=== PATIENT | male | born 1955 | race Caucasian/White ===

== ENCOUNTER 2018-04-14 07:07 | Observation (INO) | payer BC ==
[2018-04-13 12:57] LABS: BASOPHILS % 0.1 % (0.0-1.0); EOSINOPHILS # (AUTO) 0.2 (0.0-0.4); EOSINOPHILS % 1.8 % (0.0-6.0); HEMATOCRIT 45.4 % (38.2-49.6); HEMOGLOBIN 15.5 g/dL (14.0-18.0); LYMPHOCYTES # (AUTO) 1.3 (1.0-3.2); LYMPHOCYTES % 14.4 % (18.0-39.1); MEAN CORPUSCULAR HEMOGLOBIN 32.8 pg (28-32); MEAN CORPUSCULAR HGB CONC 34.1 g/dL (31-35); MEAN CORPUSCULAR VOLUME 96.2 fL (81-99); MONOCYTES # (AUTO) 0.7 (0.2-0.8); MONOCYTES % 7.8 % (4.4-11.3); NEUTROPHILS # (AUTO) 6.6 (2.1-6.9); NEUTROPHILS % 75.6 % (38.7-80.0); PLATELET COUNT 152 x10e3/uL (140-360); RED BLOOD COUNT 4.72 x10e6/uL (4.3-5.7); RED CELL DISTRIBUTION WIDTH 12.5 % (11.7-14.4)
[2018-04-13 13:07] LABS: INR 1.14; PROTHROMBIN TIME 13.7 seconds (11.9-14.5)
[2018-04-13 13:08] LABS: PARTIAL THROMBOPLASTIN TIME 25.2 seconds (23.8-35.5)
[2018-04-13 13:12] LABS: ANION GAP 13.8 mmol/L (8-16); BLOOD UREA NITROGEN 25 mg/dL (7-26); BUN/CREATININE RATIO 24 (6-25); CALCIUM 9.5 mg/dL (8.4-10.2); CARBON DIOXIDE 25 mmol/L (22-29); CHLORIDE 103 mmol/L (98-107); CREATININE, SERUM 1.04 mg/dL (0.72-1.25); EST GLOMERULAR FILTRATION RATE > 60 ML/MIN (60-); GLUCOSE 90 mg/dL (74-118); POTASSIUM 3.8 mmol/L (3.5-5.1); SODIUM 138 mmol/L (136-145)
--- NOTE | 2018-04-13 13:27 | Diagnostic Imaging Report ---
PROCEDURE: X-RAY CHEST, TWO VIEWS COMPARISON: None. INDICATIONS: PREOPERATIVE CHEST XRAY FOR CERVICAL SPINE SURGERY FINDINGS: LUNGS: No consolidations or edema. PLEURA: No effusions or pneumothorax. HEART \T\ MEDIASTINUM: The heart is within normal size-limits. BONES \T\ SOFT TISSUES: No acute findings. There are degenerative changes of the right AC joint and of a shoulder on the lateral image. CONCLUSION: No acute thoracic abnormality. Dictated by: Tayler Mcintosh M.D. on 04/13/2018 at 13:34 Electronically approved by: Tayler Mcintosh M.D. on 04/13/2018 at 13:34
[~2018-04-14] VITALS: Ht 175.3 cm; Wt 87.5 kg
[~2018-04-14 07:07] MED LIST: AMLODIPINE BESYL5 MG PO; BACITRACIN 50,000 UNIT VIAL ONE; BENICAR20 MG PO; BUPIVACAINE 0.5%/EPI 30 ML SDV INJ ONE; BUPIVACAINE HCL 0.5% INJ 30 ML VIAL INJ ONE; CIALIS5 MG PO; CRESTOR20 MG PO; FLECTOR1 EACH TOP; FOLIC ACID PO; FOLIC ACID1 MG PO; GELATIN SPONGE SZ 100 ONE; METHOTREXATE PO; MYRBETRIQ25 MG PO; NALFON400 MG PO; NEXIUM40 MG PO; PENNSAID TOP; PLAVIX75 MG PO; PREVACID30 M1 PO; TESTOSTERON INJ; THROMBIN FOR SOLN 5,000 UNIT VIAL ONE; ZIPSOR25 MG PO
[2018-04-14] MEDS ORDERED: ACETAMINOPHEN 1000 MG/100 ML 100 ML IV ONE (07:12)
[2018-04-14] MEDS ORDERED: LIDOCAINE HCL (LTA) 4 ML SOLN ONE (07:12)
[2018-04-14] MEDS ORDERED: CEFAZOLIN SOD 1 GM VIAL ONE (07:44)
[2018-04-14] MEDS: LACTATED RINGER'S 1,000 ML IV SCH ×2 (09:44→18:04)
[2018-04-14] MEDS ORDERED: MAGNESIUM/ALUMINUM/SIMETHICONE 30 ML UDC PO PRN (09:45)
[2018-04-14] MEDS ORDERED: TADALAFIL 5 MG PO PRN (09:45)
[2018-04-14] MEDS ORDERED: CARISOPRODOL 350 MG TAB PO PRN (09:45)
[2018-04-14] MEDS ORDERED: MORPHINE SULFATE 5 MG/ML VIAL IM PRN (09:45)
[2018-04-14] MEDS ORDERED: ONDANSETRON HCL INJ 2 MG/ML VIAL IV PRN (09:45)
[2018-04-14] MEDS ORDERED: HYDROMORPHONE 2MG/ML 2 MG/ML ML IV PRN (09:45)
[2018-04-14] MEDS ORDERED: PROMETHAZINE HCL (IM) 25 MG/ML VIAL IM PRN (09:45)
[2018-04-14] MEDS ORDERED: ACETAMINOPHEN 325 MG TAB PO PRN (09:45)
[2018-04-14] MEDS ORDERED: FENTANYL CITRATE/PF 100MCG/2 ML INJ ONE ×2 (09:50→17:51)
[2018-04-14] MEDS ORDERED: HYDROMORPHONE 1MG/1ML INJ ONE (10:03)
[2018-04-14] MEDS: PANTOPRAZOLE SOD 40 MG TABEC PO SCH (11:00)
[2018-04-14 11:05] VITALS: BP 167/85
[2018-04-14 11:06] VITALS: BP 167/85
[2018-04-14] MEDS: OXYCODONE/ACETAMINOPHEN 5-325 1 EACH TABLET PO PRN ×3 (11:50→20:00)
[2018-04-14 12:26] VITALS: BP 156/74
[2018-04-14] MEDS ORDERED: CEFAZOLIN SOD 1 GM/D5W 50ML 50 ML IV SCH (14:00)
[2018-04-14] MEDS ORDERED: CEPACOL SORE THROAT LOZENGES PO ONE (15:08)
[2018-04-14] MEDS ORDERED: CEPACOL SORE THROAT LOZENGES PO PRN (15:15)
[2018-04-14] MEDS: CEFAZOLIN SOD 1 GM VIAL IV SCH ×2 (16:00→23:09)
[2018-04-14 17:00] VITALS: BP 139/72
[2018-04-14] MEDS ORDERED: MIDAZOLAM HCL 2 MG/2 ML VIAL ONE (17:51)
[2018-04-14] MEDS ORDERED: GLYCOPYRROLATE INJ 1MG/ 5 ML SYR ONE (18:30)
[2018-04-14] MEDS ORDERED: NEOSTIGMINE 5 MG/5ML SYR ONE (18:30)
[2018-04-14] MEDS ORDERED: ROCURONIUM BROMIDE 10 MG/ML 5ML VIAL ONE (18:30)
[2018-04-14] MEDS ORDERED: LIDOCAINE HCL 2% LOCAL INJ 5 ML SDV VIAL INJ ONE (18:30)
[2018-04-14] MEDS ORDERED: PROPOFOL IV EMULSION 10 MG/ML 20 ML VIAL ONE (18:30)
[2018-04-14] MEDS ORDERED: DEXAMETHASONE SOD PHOS INJ 4 MG/ML VIAL ONE (18:30)
[2018-04-14] MEDS ORDERED: SEVOFLURANE INHAL SOLN 250 ML PEN BTL ONE (18:30)
[2018-04-14] MEDS ORDERED: LIDOCAINE HCL 2% JELLY 5 ML TUBE ONE (18:30)
[2018-04-14] MEDS ORDERED: ONDANSETRON HCL INJ 2 MG/ML VIAL ONE (18:30)
[2018-04-14 20:00] VITALS: BP 138/65
[2018-04-14] MEDS ORDERED: CRESTOR 10MG PO SCH (21:00)
[2018-04-14] MEDS ORDERED: ZOLPIDEM TARTRATE 5 MG TAB PO PRN (21:00)
[2018-04-15] VITALS: BP 141/78
[2018-04-15] MEDS: OXYCODONE/ACETAMINOPHEN 5-325 1 EACH TABLET PO PRN ×2 (02:05→06:05)
[2018-04-15] MEDS: LACTATED RINGER'S 1,000 ML IV SCH (02:24)
[2018-04-15 04:00] VITALS: BP_SYST 104; BP_SYST 144; BP_DIAS 52; BP_DIAS 77
--- NOTE | 2018-04-15 06:06 | Diagnostic Imaging Report ---
C-SPINE 2 VIEWS AP LATERAL Comparison: None Clinical history: Status post surgery Findings: C-collar is in place. Postsurgical change status post C5-7 ACDF without evidence of acute complication. Straightening of the normal cervical lordosis. There is 2 to 3 mm anterolisthesis of C3 over C4. Impression: Postsurgical changes status post C5-7 ACDF Signed by: Dr Neisha Michel MD on 04/15/2018 6:02 AM
[2018-04-15] MEDS: PANTOPRAZOLE SOD 40 MG TABEC PO SCH (07:30)
[2018-04-15] MEDS: CEFAZOLIN SOD 1 GM VIAL IV SCH (08:05)
[2018-04-15 08:27] VITALS: BP 144/71
[2018-04-15] MEDS ORDERED: AMLODIPINE BESYLATE 5 MG TAB PO SCH (09:00)
[2018-04-15] MEDS ORDERED: NON-FORMULARY MEDICATION (Lansoprazole (Prevacid) 30 MG) PO SCH (09:00)
[2018-04-15] MEDS ORDERED: NON-FORMULARY MEDICATION (Rosuvastatin Calcium (Crestor) 20 MG) PO SCH (09:00)
[2018-04-15] MEDS ORDERED: FOLIC ACID PO SCH (09:00)
[2018-04-15] MEDS ORDERED: FOLIC ACID 1 MG TAB PO SCH ×2 (09:00)
[2018-04-15] MEDS ORDERED: OLMESARTAN 20 MG TAB PO SCH (09:00)
[2018-04-15] MEDS ORDERED: (Mirabegron (Myrbetriq) 25 MG) PO SCH (09:00)
[2018-04-20] MEDS ORDERED: METHOTREXATE 20 MG PO SCH (09:00)
--- NOTE | 2018-04-22 16:21 | Operative Report ---
DATE OF PROCEDURE: April 14, 2018 PREOPERATIVE DIAGNOSIS: C5-6 and C6-7 spondylosis and disk herniations with radiculopathy, M50.120. POSTOPERATIVE DIAGNOSIS: C5-6 and C6-7 spondylosis and disk herniations with radiculopathy, M50.120. PROCEDURES: 1. C5-6 anterior cervical diskectomy and microsurgical osteophyte resection and allograft fusion, 52432. 2. C6-7 anterior cervical diskectomy and microsurgical osteophyte resection and allograft fusion, 45927. 3. Preparation of iliac crest cortical cancellous allograft, 21894. 4. C5-6 and C6-7 anterior cervical plating with Synthes CSLP plate, [id number]. ANESTHESIA: General. INDICATIONS: The patient is a 63-year-old man who presents with neck pain and cervical radiculopathy with bilateral radicular symptoms. He was taken to the operating room for a 2-level anterior cervical decompression and fusion. PROCEDURE: After the induction of general anesthesia, the patient was placed on the operating table in supine position. The right side of the neck was prepped and draped in sterile fashion. The fluoroscopic C-arm was positioned in cross-table lateral orientation. A transverse incision was created on the right side of the neck superimposed on the C6 vertebral body as determined by fluoroscopy. The platysma was divided in line with the incision. A subplatysmal dissection was carried out. An avascular plane of dissection was developed medial to the sternocleidomastoid muscle and was followed medial to the carotid sheath to the anterior border of the cervical spine. The deep cervical fascia was opened. The esophagus was retracted to the left. Attachments of longus coli muscles to the anterolateral aspects of vertebral bodies of C5 and C6 and C7 were divided. The anterior longitudinal ligament was resected. [place] posts were inserted into C5 and C7. The [place] distractor was used to distract both disk spaces simultaneously. The anterior annuli of the disks were incised with a number 11 blade, and the contents of both disks were thoroughly evacuated with angled curets and pituitary rongeurs. The posterior osteophytes were meticulously drilled with a 2 mm cutting bur on a high-speed drill until they were completely removed. The posterior annulus of the disk, herniated disk material, and the posterior longitudinal ligament were resected layer by layer until the dura was fully exposed and decompressed. The medial aspects of the uncinate processes were resected bilaterally to further expose and decompress the origins of the corresponding nerve roots. After a satisfactory decompression had been achieved, the endplates were prepared for fusion. Two pieces of tricortical iliac crest allograft were cut to the sizes and shapes of the disk spaces and were inserted into the spaces under distraction and fluoroscopic guidance. The distraction was released, and the distraction posts were removed. A Synthes CSLP variable type anterior cervical plate was selected and affixed to vertebral bodies of C5, C6 and C7 with 3 pairs of 14 x 4.35 mm screws. All screw holes were first drilled and tapped under lateral fluoroscopic guidance. All screws were locked with the appropriate locking screws. An excellent construct was obtained. The wound was copiously irrigated with Bacitracin solution and closed with 3-0 Vicryl sutures and 4-0 Monocryl sutures. No intraoperative complications were encountered. Estimated blood loss was 30 mL. Job#: [id number] EV
== END 2018-04-15 09:25 | disposition home or self-care (01) ==
LOC: OR 07:07 → PACU V 09:45 → MED/SURG 10:33
PROVIDERS: ADMIT Neurological Surgery; ATTEND Neurological Surgery
DX: M50.123 Cervical disc disorder at C6-C7 level with radiculopathy (principal); I25.10 Atherosclerotic heart disease of native coronary artery without angina pectoris; I10 Essential (primary) hypertension; K21.9 Gastro-esophageal reflux disease without esophagitis; Z86.19 Personal history of other infectious and parasitic diseases; G47.33 Obstructive sleep apnea (adult) (pediatric); Z01.810 Encounter for preprocedural cardiovascular examination; Z01.812 Encounter for preprocedural laboratory examination; Z01.811 Encounter for preprocedural respiratory examination
CPT/HCPCS: 20931; 22551; 22552; 22845; 36415; 71046; 72040; 77003; 80048; 85025; 85610; 85730; 86850; 86900; 88304; 93005; C1713 ×5; C1763; G0378 ×2; J0690 ×2; J1100; J1170; J2001 ×2; J2250; J2405; J3490; J7120; S0164 ×2

== ENCOUNTER → 2018-05-12 | Outpatient (CLI) | payer BC ==
[~2018-05-12] MED LIST changes: -BACITRACIN 50,000 UNIT VIAL ONE; -BUPIVACAINE 0.5%/EPI 30 ML SDV INJ ONE; -BUPIVACAINE HCL 0.5% INJ 30 ML VIAL INJ ONE; -GELATIN SPONGE SZ 100 ONE; -THROMBIN FOR SOLN 5,000 UNIT VIAL ONE
--- NOTE | 2018-05-12 07:12 | Diagnostic Imaging Report ---
PROCEDURE: C-SPINE AP AND LAT WITH FLEX AND EXT COMPARISON: Patients [facility], DX, C-SPINE 2 VIEWS AP \T\ LATERAL, 04/15/2018, 5:20. INDICATIONS: STATUS PSOT NECK SURGERY FINDINGS: C1 through C7 are visualized on the lateral view. Mild reversal of the cervical lordosis may be related muscle spasm or positioning. Re-demonstration of status post anterior fusion of C5-C7 with metallic plate and transfixing screws which are intact and in adequate alignment. Mild anterior listhesis of C3 on C4 is again noted. Flexion and extension views demonstrate no change in alignment. The prevertebral soft tissues are not swollen. CONCLUSION: Status post anterior fusion of C4-C7 with intact hardware and adequate alignment. Gen Small D.O. Dictated by: Gen Small D.O. on 05/12/2018 at 7:18 Electronically approved by: Gen Small D.O. on 05/12/2018 at 7:18
== END ==
LOC: RAD 06:34
PROVIDERS: ATTEND Neurological Surgery
DX: M50.20 Other cervical disc displacement, unspecified cervical region (principal); Z98.1 Arthrodesis status
CPT/HCPCS: 72050

== ENCOUNTER → 2018-11-04 | Outpatient (CLI) | payer BC ==
--- NOTE | 2018-11-04 12:46 | Diagnostic Imaging Report ---
EXAM: SPINE CERVICAL AP LAT FLEX EXT DATE: 11/04/2018 10:20 AM INDICATION: Cervical fusion COMPARISON: Cervical spine, 05/12/2018 FINDINGS: 8 views of the cervical spine were obtained including flexion and extension lateral views. Lateral views show 7 cervical vertebrae. Anterior fusion hardware is again seen from C5 through C7. Hardware appears intact. Cervical body heights are maintained. No subluxation or prevertebral soft tissue swelling. Cervical alignment appears stable in flexion and extension views. There is stable minimal anterolisthesis of C3 on C4. Odontoid is intact. On oblique views there is some narrowing of neural foramina at C5-6 and C6-7 by posterior osteophytes. IMPRESSION: Again noted is C5-C7 anterior fusion. Unchanged minimal anterolisthesis of C3 on C4 which does not appear to change on flexion and extension. Signed by: Dr. Trung Levine M.D. on 11/04/2018 12:42 PM
== END ==
LOC: RAD 10:11
PROVIDERS: ATTEND Neurological Surgery
DX: M50.20 Other cervical disc displacement, unspecified cervical region (principal); Z98.1 Arthrodesis status
CPT/HCPCS: 72050

== ENCOUNTER → 2021-02-18 | Day surgery (SDC) | payer BC, MEDICARE ==
[~2021-02-18] MED LIST changes: +CELEBREX200 MG PO; +CIMZIA400 MG/2 M INJ; +ONDANSETRON HCL 4 MG ORAL DISINTEGRATING TAB ONE; +PROPOFOL IV EMULSION 10 MG/ML 20 ML VIAL ONE
[2021-02-18 15:33] VITALS: BP 158/91
== END | disposition home or self-care (01) ==
LOC: OR 12:23
PROVIDERS: ATTEND Internal Medicine Gastroenterology
DX: K29.70 Gastritis, unspecified, without bleeding (principal); D12.2 Benign neoplasm of ascending colon; D12.3 Benign neoplasm of transverse colon; D12.4 Benign neoplasm of descending colon; K57.30 Diverticulosis of large intestine without perforation or abscess without bleeding; K21.9 Gastro-esophageal reflux disease without esophagitis; K44.9 Diaphragmatic hernia without obstruction or gangrene; G47.33 Obstructive sleep apnea (adult) (pediatric); I25.10 Atherosclerotic heart disease of native coronary artery without angina pectoris; I10 Essential (primary) hypertension; E78.5 Hyperlipidemia, unspecified; M06.9 Rheumatoid arthritis, unspecified; Z79.02 Long term (current) use of antithrombotics/antiplatelets; Z86.19 Personal history of other infectious and parasitic diseases
CPT/HCPCS: 43239; 45384; 45385; J2704; Q0162; 43235; 45378

== ENCOUNTER → 2024-10-20 | Day surgery (SDC) | payer MEDICARE ==
[2024-10-18 09:20] LABS: BASOPHILS % 0.3 % (0.0-1.0); EOSINOPHILS # (AUTO) 0.2 (0.0-0.4); EOSINOPHILS % 2.5 % (0.0-6.0); HEMATOCRIT 47.1 % (38.2-49.6); HEMOGLOBIN 16.2 g/dL (14.0-18.0); LYMPHOCYTES # (AUTO) 2.1 (1.0-3.2); LYMPHOCYTES % 33.3 % (18.0-39.1); MEAN CORPUSCULAR HEMOGLOBIN 33.4 pg (28-32); MEAN CORPUSCULAR HGB CONC 34.4 g/dL (31-35); MEAN CORPUSCULAR VOLUME 97.1 fL (81-99); MONOCYTES # (AUTO) 0.8 (0.2-0.8); MONOCYTES % 12.7 % (4.4-11.3); NEUTROPHILS # (AUTO) 3.3 (2.1-6.9); NEUTROPHILS % 50.9 % (38.7-80.0); PLATELET COUNT 148 x10e3/uL (140-360); RED BLOOD COUNT 4.85 x10e6/uL (4.3-5.7); RED CELL DISTRIBUTION WIDTH 12.2 % (11.7-14.4); WHITE BLOOD COUNT 6.39 x10e3/uL (4.8-10.8)
[~2024-10-20] MED LIST changes: +BUPIVACAINE LIPOSOME/PF 266 MG/20 ML IJ ONE; +DEXAMETHASONE SOD PHOS INJ 4 MG/ML SDV ONE; +DIOVAN80 MG PO; +ELIQUIS5 MG PO; +EPHEDRINE SULFATE INJ 50 MG/ML VIAL ONE; +GLYCOPYRROLATE INJ 0.2 MG/ML VIAL ONE; +LIDOCAINE HCL 2% LOCAL INJ 5 ML SDV VIAL INJ ONE; +METOPROLOL TART50 MG PO; +NEURONTIN400 MG PO; -ONDANSETRON HCL 4 MG ORAL DISINTEGRATING TAB ONE; +ONDANSETRON HCL INJ 2MG/ML 2ML 2 MG/ML VIAL ONE; +ROCURONIUM BROMIDE 1 ML IV ONE; +SEVOFLURANE INHAL SOLN 250 ML PEN BTL ONE; +SIMPONI AR50 MG/4 ML; +SUGAMMADEX SODIUM 200 MG/2 ML VIAL IV ONE; +ZETIA10 MG PO
[2024-10-20] MEDS: LACTATED RINGER'S 1,000 ML ONE (06:10)
[2024-10-20] MEDS: CEFAZOLIN SODIUM 2 GM ONE (06:11)
[2024-10-20 11:40] VITALS: TEMP 97.9
[2024-10-20 12:30] VITALS: BP 156/89; PULSE 97; RESP 16; O2SAT 95
== END | disposition home or self-care (01) ==
LOC: OR 05:29
PROVIDERS: ATTEND Orthopaedic Surgery Sports Medicine
DX: M66.812 Spontaneous rupture of other tendons, left shoulder (principal); Z96.612 Presence of left artificial shoulder joint; Z96.652 Presence of left artificial knee joint; Z98.1 Arthrodesis status; R00.1 Bradycardia, unspecified; I45.10 Unspecified right bundle-branch block; E78.5 Hyperlipidemia, unspecified; I10 Essential (primary) hypertension; K21.9 Gastro-esophageal reflux disease without esophagitis; Z01.810 Encounter for preprocedural cardiovascular examination; Z01.812 Encounter for preprocedural laboratory examination; Z01.818 Encounter for other preprocedural examination; Z79.02 Long term (current) use of antithrombotics/antiplatelets; Z79.899 Other long term (current) drug therapy
CPT/HCPCS: 23412; 36415; 71046; 85025; 86850; 86900; 93005; C1713 ×6; J1100; J2003; J2405; J2704; J7121